=== PATIENT | male | born 1985 | race Caucasian/White ===

== ENCOUNTER 2017-02-20 14:09 | Emergency (ER) | payer OTHER ==
[2017-02-20] MEDS ORDERED: Ondansetron HCl/PF 4 MG/2 ML Vial ONE (14:52)
[2017-02-20] MEDS ORDERED: Morphine 2 MG/ML SYRINGE ONE ×2 (14:52→16:19)
[2017-02-20] MEDS ORDERED: Diazepam 5 MG TAB ONE (14:53)
--- NOTE | 2017-02-20 15:38 | RAD ---
LUMBAR SPINE 3 VIEWS: Date: 02/20/17 HISTORY: Pain. COMPARISON: None. FINDINGS: Five lumbar-type vertebral bodies. Lumbar spine vertebral body height is maintained. No fracture. St raightening of normal lumbar lordosis likely due to patient positioning or muscle spasm. IMPRESSION: Unremarkable 3 views lumbar spine. MRI if clinically warranted, on a nonemergent basis. POS: MEKHI
[2017-02-20] MEDS ORDERED: Cyclobenzaprine 10 MG TAB ONE (16:56)
[2017-02-20] MEDS ORDERED: Ibuprofen 800 MG TAB ONE (16:56)
== END 2017-02-20 17:48 | disposition home or self-care (01) ==
LOC: ERS 14:09 → EDBD 14:09 → ERS 17:48
DX: M62.830 Muscle spasm of back (principal); Z79.899 Other long term (current) drug therapy; X50.1XXA Overexertion from prolonged static or awkward postures, initial encounter
CPT/HCPCS: 72100; 96374; 96375; 96376; J2270; J2405

== ENCOUNTER 2020-04-08 13:09 | Inpatient (IN) | payer SELFPAY ==
[2020-04-08 14:30] LABS: Hemoglobin 14.8 g/dL (14.0-18.0); Mean Corpuscular HGB CONC 33.2 g/dL (32.0-36.0); Mean Corpuscular Hemoglobin 29.4 pg (27.0-31.0); Mean Corpuscular Volume 88.6 fL (78.0-98.0); Mean Platelet Volume 6.2 fL (7.4-10.4); Platelet Count 416 thou/uL (130-400); RBC Distribution Width 12.8 % (11.5-14.5); Red Blood Cell (RBC) Count 5.02 mill/uL (4.70-6.10); White Blood Cell (WBC) Count 14.9 thou/uL (4.8-10.8)
[2020-04-08 14:46] LABS: Band 1 % (5-11); Eosinophils 7 % (0-10); Lymphocytes 5 % (21-51); MDiff Complete? YES; Monocytes 1 % (0-10); Neutrophil 85 % (42-75); Platelet Morphology Comment Appears Increased; RBC Morphology Normal; Reactive Lymphocytes 1 % (0-10)
--- NOTE | 2020-04-08 15:01 | ULT ---
Scrotal sonogram with duplex evaluation HISTORY: Scrotal pain and swelling. Spider bite. FINDINGS: The right testicle measures up to 5.1 cm length and the left 3.9 cm. Each has a heterogeneo us echotexture without focal mass apparent. Echogenicity is symmetric. Color and spectral Doppler flow are present but diffusely decreased within each testicle. Appearance is symmetrical. There is diffuse marked thickening of the scrotal skin. Centered within the left scrotum in region of palpable concern is a very large heterogeneous predominantly hypoechoic peripherally lobular mass that measures up to 6.1 cm x 5.5 cm x 4.7 cm diameters and effaces the adjacent left testicle. Social And Human Services Assistant al increased Doppler flow. Minimal left scrotal fluid. IMPRESSION : No internal fluid pockets are apparent within the very large, heterogeneous hypervascular mass of the left side of the scrotum having the appearance of an inflammatory phlegmon. Bilateral and symmetric decrease in vascular flow involving each testicle, favored to be related to t echnical factors due to the depth from scrotal thickening and possibly to vascular effacement from the prominent inflammation. Appearance is not typical for torsion.
[2020-04-08 15:02] LABS: ALT (SGPT) 24 U/L (8-55); AST (SGOT) 19 U/L (5-34); Albumin 4.1 g/dL (3.5-5.0); Alkaline Phosphatase 97 U/L (40-110); Anion Gap 14 mmol/L (10-20); BUN (Urea Nitrogen) 11 mg/dL (8.9-20.6); Bilirubin, Total 0.5 mg/dL (0.2-1.2); Calc. Creatinine Clearance 0 mL/min (70-130); Calcium 9.4 mg/dL (7.8-10.44); Carbon Dioxide 26 mmol/L (22-29); Chloride 98 mmol/L (98-107); Globulin 4.3 g/dL (2.4-3.5); Glucose 103 mg/dL (70-105); Potassium 4.3 mmol/L (3.5-5.1); Protein, Total 8.4 g/dL (6.0-8.3); Sodium 134 mmol/L (136-145)
[2020-04-08 15:02] LABS: Bilirubin Negative (Negative); Blood, Urine Negative (Negative); Clarity Clear (Clear); Glucose, Urine (Dipstick) Normal (Negative); Ketone, Urine Negative (Negative); Leukocyte Negative Leu/uL (Negative); Nitrite Negative (Negative); Protein, Urine (Dipstick) Negative (Neg-Trace); Specific Gravity, Urine 1.007 (1.002-1.036); Urobilinogen Normal mg/dL (Less than 2)
[2020-04-08] MEDS ORDERED: Ketorolac Tromethamine 30 MG/ML VIAL ONE (19:21)
[2020-04-08] MEDS ORDERED: Clindamycin/D5W 900 mg/50 ml Premix Bag ONE (19:30)
--- NOTE | 2020-04-08 21:03 | PDOC.FPRHP ---
- History of Present Illness Chief Complaint: scrotal swelling History of Present Illness: 35 y/o M with PMHx ADHD, pre-HTN presents with c/o scrotal pain and swelling. States approximately 10 days ago was awoken from sleep by pinching sensation on R scrotum, assumed was biten by spider. Did not have any open wound that he is aware of at that time. 5 days ago, began to develop bilateral swelling, redness, and warmth of the scrotum. At first was mild but gradually worsened over the past several days. Yesterday, was seen in [place] ER and advised to come to our facility because US was unavailable at that time and he presented today after going home last night. He denies any drainage from the area, hx of STDs, dysu allyson, hematuria, urinary frequency, fever, chills, additional rash or skin lesion. Endorses n/v after taking an oral dose of clindamycin earlier today, but otherwise has not experienced and abdominal pain, nausea, or vomiting. Tdap given in [place] yesterday. ED course: testicular US findings suggestive of inflammatory phlegmon, not suggestive of torsion; received clindamycin, levaquin, 1L NS, toradol; Dr. Hodges consulted - Allergies/Adverse Reactions Allergies Allergy/AdvReac Type Severity Reaction Status Date / Time No Known Drug Allergies Allergy Unverified 04/08/20 23:33 - Home Medications Medication Instructions Recorded Confirmed Type Dextroamphetamine/Amphetamine 30 mg PO BID 04/08/20 04/08/20 History [Dextroamp-Amphetamin 30 mg Tab] Lisinopril 10 mg PO DAILY 04/08/20 04/08/20 History - History PMHx: pre-hypertension, ADHD PSHx: denies past surgery FHx: HTN Social: never smoker, weekend etoh use 6-12 beers per weekend, denies drug use - Review of Systems General: denies: fever/chills, fatigue Eyes: denies: eye pain, vision changes ENT: denies: nasal congestion, rhinorrhea Respiratory: denies: cough, congestion, shortness of breath Cardiovascular: denies: chest pain, palpitation, edema Gastrointestinal: reports: nausea, vomiting. denies: diarrhea, constipation, abdominal pain Genitourinary: reports: other (scrotal swelling, scrotal pain). denies: dysuria, polyuria, discharge Skin: reports: rashes Musculoskeletal: denies: pain, arthritis/arthralgias Neurological: denies: syncope, weakness (scrotal erythema, denies additional rash/skin lesion) - Vital signs BP: 123/67, Pulse: 82, Resp: 15, O2 sat: 98 on (Room Air), Tmax 99.6 F, Wt: 104 kg - Physical Exam Constitutional: NAD, awake, alert and oriented, well developed HEENT: normocephalic and atraumatic, conjunctiva clear, no scleral icterus, grossly normal vision, grossly normal hearing, MMM, oropharynx clear, good dention Neck: supple Heart: RRR, normal S1/S2, no murmurs/rubs/gallops, pulses present, no edema Lungs: CTAB, no respiratory distress, good air movement, no rales/rhonchi, no wheezing, no retractions Abdomen: soft, non-tender, bowel sounds present Musculoskeletal: normal structure Neurological: no focal deficit Skin: good turgor, capillary refill <2 seconds Heme/Lymphatic: no unusual bruising or bleeding, other (L inguinal lymphadenopathy) Psychiatric: normal mood and affect, good judgment and insight, intact recent and remote memory Additional comment: exam: erythema and swelling of bilateral scrotum, L > R with some indurati on/fluctuance on the L, mildly TTP, no obvious drainage or ulceration FMR H&P: Results - Labs Result Diagrams: 04/08/20 14:13 04/08/20 14:13 Lab results: WBC 14.9 thou/uL (4.8-10.8) H 04/08/20 14:13 Hgb 14.8 g/dL (14.0-18.0) 04/08/20 14:13 Hct 44.5 % (42.0-52.0) 04/08/20 14:13 MCV 88.6 fL (78.0-98.0) 04/08/20 14:13 Plt Count 416 thou/uL (130-400) H 04/08/20 14:13 Band Neuts % (Manual) 1 % (5-11) L 04/08/20 14:13 Sodium 134 mmol/L (136-145) L 04/08/20 14:13 Potassium 4.3 mmol/L (3.5-5.1) 04/08/20 14:13 Chloride 98 mmol/L (98-107) 04/08/20 14:13 Carbon Dioxide 26 mmol/L (22-29) 04/08/20 14:13 BUN 11 mg/dL (8.9-20.6) 04/08/20 14:13 Creatinine 0.93 mg/dL (0.7-1.3) 04/08/20 14:13 Glucose 103 mg/dL (70-105) 04/08/20 14:13 Lactic Acid 0.9 mmol/L (0.5-2.2) 04/08/20 19:45 Calcium 9.4 mg/dL (7.8-10.44) 04/08/20 14:13 Total Bilirubin 0.5 mg/dL (0.2-1.2) 04/08/20 14:13 AST 19 U/L (5-34) 04/08/20 14:13 ALT 24 U/L (8-55) 04/08/20 14:13 Alkaline Phosphatase 97 U/L (40-110) 04/08/20 14:13 Serum Total Protein 8.4 g/dL (6.0-8.3) H 04/08/20 14:13 Albumin 4.1 g/dL (3.5-5.0) 04/08/20 14:13 Urine Ketones Negative mg/dL (Negative) 04/08/20 14:50 Urine Blood Negative (Negative) 04/08/20 14:50 Urine Nitrite Negative (Negative) 04/08/20 14:50 Ur Leukocyte Esterase Negative Nestor/uL (Negative) 04/08/20 14:50 FMR H&P: A/P - Plan Cellulitis of scrotum Bilateral scrotal cellulitis. Testicular US not suggestive of torsion, rather inflammatory phlegmon. Tdap given yesterday. s/p clindamycin, levaquin in ED. Urology Dr. Hodges consulted from ED. UA negative. WBC elevated 14.9. - continue clindamycin and levaquin - NPO after MN - scrotal elevation - Dr. Hodges to see in AM - will check procalcitonin - continue to monitor vitals - LR @ 140 - f/u GC/chlamydia collected in ED Hypertension Normotensive. - continue home lisinopril ADHD Aware. Hold home adderall. Dispo: inpatient medical, expected LOS > 2 nights due to need for IV abx DVT ppx: ambulation, SCDs IVF: LR @ 140 FMR H&P: Upper Level - Plan Date/Time: 04/08/202102 I, Flor Billingsley, have evaluated this patient and agree with findings/plan as outlined by creative services intern resident. Pertinent changes/additions are listed here. HPI: 35 yo M with PMH of ADHD, HTN presents for scrotal swelling. Pt reports 10 days ago he had a sharp pain that woke him up from sleep, believes he was bitten by a spider. Since that time, he has developed worsened pain, erythema, and warmth of his scrotum, worse on the L side. He denies fevers. Denies urinary symptoms. He went to the ED yesterday in [place], was told to come here to have an US evaluation. He received Tdap yesterday and was started on clindamycin, which made him vomit. He reports his pain is improved currently with Toradol. In ED, WBC elevated. US showed inflammatory phlegmon: hyperechoic peripherally lobular mass measuring 6.1x 5.5 x 4.7 cm near L testicle, unlikely to have testicular torsion, no drainable abscess seen. Dr. Hodges was consulted, requested patient be NPO at midnight for possible intervention. He was given clindamycin and Levaquin, 1 L NS, and 15 mg IV Toradol. Physical exam: stable vitals. Cardiac RRR no murmurs, Lungs BCTA. Scrotum is erythematous with calor, testicles bilaterally enlarged and diffusely tender to palpation. L scrotum has area of fluctuance. Penis has no discharge, no erythema, circumcised. No intertriginous rashes present. A/P: Scrotal Cellulitis. Elevated WBC, pt does not meet sepsis criteria. Continue clindamycin and Levaquin. MIVF, NPO @ midnight for possible intervention. Dr. Hodges consulted, appreciate recs. Admission Covid swab collected. HTN. Continue home medications. Dispo: Admit to medical inpatient for IV antibiotics. NPO at midnight for possible intervention tomorrow by Dr. Hodges. Kathe Billingsley MD
[2020-04-08] MEDS ORDERED: Ondansetron ODT 4 MG TAB PO PRN (22:00)
[2020-04-08] MEDS ORDERED: Acetaminophen 325 MG TAB PO PRN (22:00)
[2020-04-08] MEDS ORDERED: Lactated Ringer's 1,000 ML IV SCH (22:30)
[2020-04-09] MEDS ORDERED: Clindamycin/D5W 900 mg/50 ml Premix Bag ONE (00:32)
[2020-04-09] MEDS: Clindamycin/D5W 900 MG in Premix Bag 1 BAG IVPB SCH ×3 (00:32→17:57)
[2020-04-09] MEDS ORDERED: Lactated Ringer's 1,000 ML IV SCH (02:41)
[2020-04-09 06:38] LABS: Hemoglobin 12.4 g/dL (14.0-18.0); Mean Corpuscular HGB CONC 32.7 g/dL (32.0-36.0); Mean Corpuscular Hemoglobin 29.1 pg (27.0-31.0); Mean Platelet Volume 6.1 fL (7.4-10.4); Platelet Count 357 thou/uL (130-400); RBC Distribution Width 12.8 % (11.5-14.5); Red Blood Cell (RBC) Count 4.28 mill/uL (4.70-6.10); White Blood Cell (WBC) Count 11.9 thou/uL (4.8-10.8)
[2020-04-09 06:52] LABS: Band 5 % (5-11); Eosinophils 2 % (0-10); Lymphocytes 11 % (21-51); MDiff Complete? YES; Monocytes 7 % (0-10); Neutrophil 75 % (42-75); Platelet Morphology Comment Appears Adequate; RBC Morphology Normal
--- NOTE | 2020-04-09 07:03 | PDOC.FM ---
- Subjective Subjective: Doing very well this morning. Good spirits. Pain well-controlled. Denies any fever/chills, CP, SOB, n/v, abd pain. Swelling of scrotum has improved slightly. - Objective MAR Reviewed: Yes Result Diagrams: 04/09/20 06:26 04/08/20 14:13 Phys Exam - Physical Examination Constitutional: NAD (resting comfortably, good spirits) HEENT: moist MMs Neck: no nodes, supple Respiratory: no wheezing, no rales, no rhonchi, clear to auscultation bilateral Cardiovascular: RRR, no significant murmur, no rub Gastrointestinal: soft, non-tender, no distention, positive bowel sounds Swollen scrotum, L>R, mildly tender to palpation, no drainage/erythema Musculoskeletal: no edema Neurological: moves all 4 limbs Psychiatric: normal affect, A&O x 3 Dx/Plan (1) Cellulitis of scrotum Code(s): N49.2 - INFLAMMATORY DISORDERS OF SCROTUM Status: Acute - Plan Plan: 35yo M with h/o HTN and ADHD presents for 1 week swelling of scrotum admitted for scrotal cellulitis #Scrotal cellulitis with phelmon - Sxs started approximately 1 week prior to admission after "spider bite" approximately 12 days prior to admission - Testicular US negative for torsion, positive for inflammatory phlegmon. - TDap given in ED - Clinda and levaquin (04/08) - UA clean, WBC 14.9 -> 12.4. Procal 0.04 - GC/C pending, BCx pending - Urology, Dr. Hodges, consulted from ED, apprec recs - NPO for possible surgical intervention #Hypertension - Normotensive, continue home lisinopril #ADHD - Aware. Hold home adderall. PCP: OOT VTE: SCDs Diet: NPO IVF: LR @120cc/hr Dispo: Admit to inpatient medical for scrotal cellulitis, expected LOS > 2 nights due to need for IV abx and possible surgical intervention. Awaiting uro recs.
[2020-04-09] MEDS: Lactated Ringer's 1,000 ML IV SCH ×3 (08:41→20:18)
[2020-04-09] MEDS ORDERED: Famotidine/PF 20 mg/2ml Vial ONE (09:39)
[2020-04-09] MEDS ORDERED: Fentanyl 100 MCG/2 ML VIAL ONE (09:39)
[2020-04-09 09:44] LABS: SARS-CoV-2 NAA Rapid Test Not Detected (NotDetected)
[2020-04-09] MEDS ORDERED: Midazolam HCl 2 mg/2 ml Vial ONE (09:47)
[2020-04-09] MEDS ORDERED: Metoclopramide HCl 10 MG/2 ML VIAL ONE (10:44)
[2020-04-09] MEDS ORDERED: Ondansetron PF 4 MG/2 ML Vial ONE (10:44)
[2020-04-09] MEDS ORDERED: Dexamethasone 20 MG/5 ML VIAL ONE (10:44)
[2020-04-09] MEDS ORDERED: PROPOFOL 200 MG/20 ML VIAL ONE (10:44)
[2020-04-09] MEDS ORDERED: Ketorolac Tromethamine 30 MG/ML VIAL ONE (10:44)
[2020-04-09] MEDS ORDERED: Lidocaine 1% PF 5 ML VIAL ONE (10:44)
[2020-04-09] MEDS ORDERED: Promethazine HCl 25 MG/ML VIAL SLOW IVP PRN (10:47)
[2020-04-09] MEDS ORDERED: Meperidine HCl/PF 25 MG/ML VIAL SLOW IVP PRN (10:47)
[2020-04-09] MEDS ORDERED: Promethazine HCl 25 MG/ML VIAL IM PRN (10:47)
[2020-04-09] MEDS ORDERED: PACU-Morphine 4MG/ML VIAL SLOW IVP PRN (10:47)
[2020-04-09] MEDS ORDERED: Ondansetron HCl/PF 4 MG/2 ML Vial IVP PRN (10:47)
--- NOTE | 2020-04-09 11:47 | CON ---
DATE OF CONSULTATION: 04/09/2020 HISTORY OF PRESENT ILLNESS: This is a 35-year-old male who was seen I think 2 days ago in the [facility] for scrotal swelling and pain. I do not believe they had inability doing an ultrasound, so I am not sure if they wished to transfer him or not, but he did not come that day, he came in instead yesterday evening to the emergency center here. He had a swollen scrotum, more swollen and tender on the left than the right. An ultrasound was done. The ultrasound showed no abnormalities to the testicles. There was blood flow to both testicles. There was a phlegmon in the left hemiscrotum and a scrotal wall thickening. He was started on clindamycin and Levaquin. The ER doctor at that point did not feel like it was something that required drainage, so he was admitted to the family medicine service on antibiotics. I saw him this morning in the ER. There was a fluctuant area, probably 7 or 8 cm on the left scrotum with very swollen scrotum, not exquisitely tender. The right side is also swollen to some extent, not as much as the left, and there is an area of softness towards the lower part of the right hemiscrotum. On talking to him, he states that he has had a problem for about 10 days, he thought he had a spider bite on the scrotum. He had tenderness one morning and then swelling. Actually, in the right side, he noticed what he describes as almost a pimple like came up and he squeezed it and drained some pus from the right side, and then 3 or 4 days ago, it seemed like everything was getting better, and then a day or 2 ago when it started to get worse and went to [place] and it has gotten worse since that time. His white count is elevated. He is not running a high fever, just low-grade. His vital signs are currently stable. He is awake and alert. MEDICAL HISTORY: Includes: 1. Hypertension. 2. ADD. ALLERGIES: NONE. MEDICATIONS: 1. He takes lisinopril. 2. He takes Adderall. PHYSICAL EXAMINATION: HEENT: Negative. NECK: Negative. LUNGS: Clear. HEART: Without murmur. ABDOMEN: Soft and nontender. GENITOURINARY: He is circumcised. No lesions. The scrotum is markedly edematous and erythematous. There is a fluctuant area on the left hemiscrotum, it is tender, but not exquisitely. On the right side, there is an area that is not as all impressive and may just be some edema of the scrotal wall. There are 2 slight abrasions of the skin between the anus and the base of the scrotum, but these do not appear to be involved and there is no induration or swelling associated with them. IMPRESSION: Scrotal wall abscess, at least on the left side. PLAN: Plan is for incision and drainage of abscess and placement of a wound VAC. Job ID: [id number]
--- NOTE | 2020-04-09 11:50 | OP ---
DATE OF PROCEDURE: 04/09/2020 PREOPERATIVE DIAGNOSIS: Scrotal wall abscess. POSTOPERATIVE DIAGNOSIS: Bilateral scrotal wall abscess. PROCEDURES PERFORMED: 1. Incision and drainage of the abscess cavities. 2. Placement of wound VAC. ANESTHETIC: General. ESTIMATED BLOOD LOSS: Less than 75 mL. PATHOLOGY SENT: Cultures were sent for aerobic, anaerobic, and Gram stain. FINDINGS: He had a large left-sided scrotal abscess with one loculation towards the midline. He had a smaller right scrotal abscess. These were not in communication with each other. DESCRIPTION OF PROCEDURE: After obtaining written and verbal consent from the patient, he was taken to the operating suite. He was placed in a supine position on the treatment table. PlexiPulses were placed on his lower extremities and turned on. He was given a general anesthetic and oral intubation. He was sterilely prepped and draped. An incision was made along the right hemiscrotum over the flocculent area and this had drained a large amount of foul-smelling, greenish yellow pus, that was sent for culture. We drained this out, broke down the loculation, it was medial, could not find any other loculations. He had a soft area on the right scrotum inferiorly and we initially just drained this with a needle and got purulent material, so we opened this up. There was probably only 4 or 5 cm incision compared to the much larger incision on the left side. It was full of pus, but not to the extent that the left was. We drained this out. We found no loculations there and could not find any other abscess cavities or anything that would suggest that these 2 were actually physically connected to each other through loculations. At this point, we irrigated out both incisions with Betadine, peroxide, and saline and then rinsed everything with saline and obtained hemostasis. At this point, the wound VAC group was brought in and consulted for placement of a wound VAC. After the wound VAC was completed, he was awakened, extubated, and taken by cara to the recovery room. Job ID: [id number]
--- NOTE | 2020-04-09 13:29 | HP ---
CHIEF COMPLAINT: Scrotal swelling. I have examined the patient and discussed the case with Dr. Chidi Schmidt. HISTORY OF PRESENT ILLNESS: Briefly, Mr. Brandon is a 35-year-old man who felt approximately 10 days ago that he may have been bitten in the scrotal area during his sleep by a spider, although he actually did not see the creature. Over the ensuing days, the scrotum began to develop swelling, redness, and warmth and it got gradually worse over particularly the last 2 days. He went to [facility] and was advised to come to [facility] for further testing including ultrasound, which he finally did late yesterday. He was found to have a scrotal abscess. He was subsequently admitted for intravenous antibiotics. Dr. Hodges of the Urology service was consulted and took the patient to surgery, where he I and D'd a very large scrotal abscess. PHYSICAL EXAMINATION: VITAL SIGNS: Blood pressure 120/65. His pulse rate was 80, respirations 15, and O2 saturation on room air 98%. Temperature was 99.6. GENERAL: The patient was awake, alert, and in no distress. EARS, NOSE, AND THROAT: No erythema or exudate. NECK: Supple. CARDIAC: Heart rhythm regular. No gallop or murmurs. LUNGS: Clear. ABDOMEN: Flat and soft without guarding or rebound. NEUROLOGIC: No focal deficits. GENITALIA: Scrotal exam revealed erythema and swelling bilaterally of the scrotum with left greater than right. There were some induration and fluctuation on the left. There is no obvious drainage or ulceration initially. LABORATORY DATA: CBC: White count was 14,900; hemoglobin 14.8; hematocrit 44.5 with an MCV of 88. Chemistries; sodium was 134, potassium 4.3, chloride 98, bicarb 26, BUN 11, creatinine 0.93, glucose 103. Liver enzymes were normal. Serologies, GC and Chlamydia negative. COVID-19 negative. ASSESSMENT: Scrotal abscess. PLAN: The patient has already been taken to surgery per Dr. Hodges for I and D. He was returned to the recovery room. He will be maintained on intravenous antibiotics. Job ID: [id number]
[2020-04-09 16:18] VITALS: BMI 32.1
[2020-04-09] MEDS: Lisinopril 10 MG TAB PO SCH (16:30)
[2020-04-09 16:58] LABS: HIV (1/2) Antibody/Antigen Non-Reactive (NonReactive); HIV 1/2 INDEX 0.12 S/CO (<1.00)
[2020-04-09] MEDS: Ketorolac Tromethamine 30 MG/ML VIAL IVP PRN (17:58)
[2020-04-10] MEDS: Clindamycin/D5W 900 MG in Premix Bag 1 BAG IVPB SCH ×3 (01:05→18:33)
[2020-04-10] MEDS: Lactated Ringer's 1,000 ML IV SCH (05:23)
--- NOTE | 2020-04-10 07:51 | PDOC.FM ---
- Subjective Subjective: Doing well. No acute events overnight. Surgery went well yesterday. Patient states swelling of scrotum as significantly decreased, pain minimal. Tolerating PO well without n/v. Denies CP, SOB, fever/chills. - Objective MAR Reviewed: Yes Vital Signs & Weight: Vital Signs (12 hours) Temp Pulse Resp BP Pulse Ox 04/10/20 04:00 97.9 F 66 15 111/73 96 04/09/20 23:51 98.4 F 74 15 113/64 96 Weight Weight 104.326 kg I&O: 04/09/20 04/10/20 04/11/20 06:59 06:59 06:59 Intake Total 1440 Balance 1440 Result Diagrams: 04/09/20 06:26 04/08/20 14:13 Phys Exam - Physical Examination Constitutional: NAD (resting comfortably, good spirits) HEENT: moist MMs Neck: supple Respiratory: no wheezing, no rales, no rhonchi, clear to auscultation bilateral Cardiovascular: RRR, no significant murmur, no rub Gastrointestinal: soft, non-tender, no distention, positive bowel sounds : Scrotum with decreased swelling/tenderness. Wound vac in place draining serosanginous fluid Musculoskeletal: no edema Neurological: moves all 4 limbs Psychiatric: normal affect, A&O x 3 Dx/Plan (1) Cellulitis of scrotum Code(s): N49.2 - INFLAMMATORY DISORDERS OF SCROTUM Status: Acute - Plan Plan: 35yo M with h/o HTN and ADHD presents for 1 week swelling of scrotum admitted for scrotal abscess #Scrotal wall abscess s/p I&D POD #1 - Sxs started approximately 1 week prior to admission after "spider bite" appr oximately 12 days prior to admission - Testicular US negative for torsion, positive for inflammatory phlegmon. - TDap given in ED - Clinda and levaquin (04/08) - UA clean, WBC 14.9 -> 12.4. Procal 0.04 - GC/C pending, BCx NGTD - Urology, Dr. Hodges, consulted from ED, OR for I&D on 04/09, apprec recs and assistance - Abscess gram stain many GPC and few GRN, will continue clinda and levaquin and await Culture - Wound care for wound vac changes #Hypertension - Normotensive, continue home lisinopril #ADHD - Aware. Hold home adderall. PCP: OOT VTE: SCDs Diet: Regular IVF: SL Dispo: Admitted to inpatient medical for scrotal abscess s/p I&D. Continue IV antibiotics awaiting culture for narrowing of antibiotic therapy. Expect discharge in next 1-2 days pending clinical course.
[2020-04-10] MEDS: Lisinopril 10 MG TAB PO SCH (08:29)
--- NOTE | 2020-04-10 09:57 | PRG ---
DATE OF SERVICE: 04/10/2020 SUBJECTIVE: The patient is afebrile. Vital signs are stable. No significant new lab work. Cultures are pending. He feels better, much less tenderness. Some tenderness when he walks around, much less swelling. He is tolerating a regular diet and urinating without difficulty. Scrotum is much diminished in size. The wound VAC appears to be working well. He is currently on clindamycin and Levaquin. However, wrote order for outpatient wound VAC and wound care; probably when the cultures are back, hopefully tomorrow he maybe be discharged need to change the wound VAC before he goes. It may be a good idea to do that. Hopefully, cultures will be back by tomorrow. Job ID: [id number]
--- NOTE | 2020-04-10 13:44 | PRG ---
DATE OF SERVICE: 04/10/2020 Mr. Brandon looks and feels much better this morning. We are continuing with his intravenous Cleocin and Levaquin. Cultures still pending. Likely discharge in a.m. Job ID: [id number]
[2020-04-10] MEDS: Ketorolac Tromethamine 30 MG/ML VIAL IVP PRN (18:36)
[2020-04-11] MEDS: Clindamycin/D5W 900 MG in Premix Bag 1 BAG IVPB SCH ×3 (01:48→16:39)
--- NOTE | 2020-04-11 07:55 | PDOC.FM ---
- Subjective Subjective: Doing very well this morning. No acute events overnight. No concerns. Pain well- controlled. Denies fever/chills, n/v, abd pain, cp, SOB. Tolerating PO well. Eager for discharge. Scrotal swelling much improved per patient. - Objective MAR Reviewed: Yes Vital Signs & Weight: Vital Signs (12 hours) Temp Pulse Resp BP Pulse Ox 04/11/20 06:05 98.2 F 57 L 16 110/70 97 04/11/20 00:00 98.4 F 63 16 106/55 L 97 04/10/20 21:08 98.4 F 65 16 109/56 L 97 04/10/20 20:00 97 Weight Weight 104.326 kg I&O: 04/10/20 04/11/20 04/12/20 06:59 06:59 06:59 Intake Total 1440 1200 Output Total 4 Balance 1440 1196 Result Diagrams: 04/09/20 06:26 04/08/20 14:13 Phys Exam - Physical Examination Constitutional: NAD (resting comfortably, good spirits) HEENT: moist MMs Neck: supple Respiratory: no wheezing, no rales, no rhonchi, clear to auscultation bilateral Cardiovascular: RRR, no significant murmur, no rub Gastrointestinal: soft, non-tender, no distention, positive bowel sounds Scrotal swelling much improved, rugae now present Wound vac in place, serosanguinous drainage Musculoskeletal: no edema Neurological: moves all 4 limbs Psychiatric: normal affect, A&O x 3 Dx/Plan (1) Cellulitis of scrotum Code(s): N49.2 - INFLAMMATORY DISORDERS OF SCROTUM Status: Acute - Plan Plan: 35yo M with h/o HTN and ADHD presents for 1 week swelling of scrotum admitted for scrotal abscess #Scrotal wall abscess s/p I&D POD #2 - Sxs started approximately 1 week prior to admission after "spider bite" approximately 12 days prior to admission - Testicular US negative for torsion, positive for inflammatory phlegmon. - TDap given in ED - Clinda and levaquin (04/08) - UA clean, WBC 14.9 -> 12.4. Procal 0.04 - GC/C pending, BCx NGTD - Urology, Dr. Hodges, consulted from ED, OR for I&D on 04/09, apprec recs and assistance - Abscess gram stain many GPC and few GRN, will continue clinda and levaquin and await Culture - prelim with skin dulce - Wound care for wound vac changes and outpatient follow up #Hypertension - Normotensive, continue home lisinopril #ADHD - Aware. Hold home adderall. PCP: OOT VTE: SCDs Diet: Regular IVF: SL Dispo: Admitted to inpatient medical for scrotal abscess s/p I&D. Continue IV antibiotics awaiting culture for narrowing of antibiotic therapy. Expect discharge this afternoon pending culture and urology recs.
[2020-04-11] MEDS: Lisinopril 10 MG TAB PO SCH (09:00)
[2020-04-11] MEDS: Ketorolac Tromethamine 30 MG/ML VIAL IVP PRN (09:40)
[2020-04-11 10:16] LABS: Chlamydia trachomatis by NAA Negative (Negative)
--- NOTE | 2020-04-11 12:12 | PRG ---
DATE OF SERVICE: 04/11/2020 Afebrile. Vital signs are stable. No new lab work. He feels very well and comfortable. He had a group B Strep that grew, so he could really go out on any cephalosporin. Keflex 500 three times a day for a week would be fine. It looks like wound care has been set up initially, where he will come in as an outpatient in 3 days. He had the wound VAC changed today. The scrotum looks fine. He can go home from my standpoint. Once the wound VAC is no longer needed, I would like to see him in my office. Job ID: [id number]
--- NOTE | 2020-04-11 16:22 | PRG ---
DATE OF SERVICE: 04/11/2020 Iglesia is looking and feeling much better this morning. He was seen by Dr. Hodges later in the day, who said he could go home. He will be discharged to continue outpatient antibiotics. Job ID: [id number]
[2020-04-12 00:17] VITALS: BP 120/51; TEMP 98
--- NOTE | 2020-04-12 08:26 | DIS ---
DATE OF ADMISSION: 04/08/2020 DATE OF DISCHARGE: 04/11/2020 RESIDENT: Chidi Schmidt MD ADMITTING ATTENDING: Iglesia Urbina M.D. DISCHARGE ATTENDING: Matheus Ruiz MD. CONSULTS: Toro Hodges MD, Urology. PROCEDURES: 1. Scrotal abscess incision and drainage performed on 04/09/2020. 2. Testicular ultrasound performed on 04/08/2020, demonstrating no internal fluid pocket apparent within the very large heterogeneous hypervascular mass in the left side of the scrotum having the appearance of inflammatory phlegmon. Appearance not typical for torsion. PRIMARY DIAGNOSIS: Scrotal wall abscess, status post incision and drainage. SECONDARY DIAGNOSES: 1. Hypertension. 2. Attention deficit hyperactivity disorder. DISCHARGE MEDICATIONS: 1. Keflex 500 mg p.o. t.i.d. 2. Dextroamphetamine 30 mg tablet p.o. b.i.d. 3. Lisinopril 10 mg p.o. daily. HISTORY OF PRESENT ILLNESS AND HOSPITAL COURSE: The patient is a pleasant 35-year-old male with a history of hypertension, who presented to the emergency room for scrotal swelling for the past week. He initially saw an outside emergency department, however they were unable to obtain a testicular ultrasound and instructed to come to the [facility]. When he arrived to [facility], his vital signs were stable with significant testicular swelling and tenderness. Urology was consulted from the emergency department, who recommended admission for operative management. Following day, he was given antibiotics in the emergency department and admitted to the floor for further evaluation and management. The patient was continued on clindamycin and Levaquin and went to the operating room on hospital day 1 for incision and drainage of the scrotal abscess with placement of wound VAC. He has tolerated the surgery well. Cultures were followed and ultimately returned skin dulce and Streptococcus that was pansensitive. We then determined the patient could be discharged home on Keflex and continue with outpatient wound care. Follow up with Urology as an outpatient. The patient's vital signs remained stable. His labs were unremarkable. HIV, gonorrhea and chlamydia were all negative, and blood cultures were negative at 48 hours at the time of discharge. Discharge plan discussed with patient at bedside, who voiced agreement and understanding and cleared for discharge home. Appropriate followup was discussed. All questions were answered. DISPOSITION: Stable. DISCHARGE INSTRUCTIONS: 1. Location: Home. 2. Diet: Regular. 3. Activity: As tolerated. 4. Followup: The patient is to follow up with his primary care physician within 1 week of discharge. The patient is to follow up with Urology within 1 to 2 weeks of discharge. The patient is to follow up with wound care next Wednesday as directed. Job ID: [id number]
== END 2020-04-11 17:17 | disposition home or self-care (01) | DRG 718 ==
LOC: ERS 13:09 → ERHOLD 19:28 → T4-B 04-09 13:01
PROVIDERS: ADMIT Family Medicine; ATTEND Family Medicine
PROC: 0V950ZZ Drainage of Scrotum, Open Approach (ICD-10-PCS; principal; 2020-04-09)
DX: N49.2 Inflammatory disorders of scrotum (principal); F90.9 Attention-deficit hyperactivity disorder, unspecified type; Z20.828 Contact with and (suspected) exposure to other viral communicable diseases; I10 Essential (primary) hypertension; B95.1 Streptococcus, group B, as the cause of diseases classified elsewhere
CPT/HCPCS: 36415; 76870; 80053; 81003; 83605; 84145; 85025; 87040; 87070; 87076; 87077; 87205; 87389; 87491; 87591; 87635; 93976; 94760; 96365; 96368; 96375; J1100; J1885; J1956; J2250; J2405; J2704; J2765; J3010; J3490; S0028; U0002; U0003